=== PATIENT | male | born 1990 | race Caucasian/White ===

== ENCOUNTER 2022-03-13 13:58 | Emergency (ER) | payer BC ==
[~2022-03-13] VITALS: Ht 165.1 cm; Wt 83.9 kg
[2022-03-13 15:35] LABS: BASO # 0.1 10*3/uL (0.0-0.1); BASO % 0.6 % (0.0-1.0); EOS % 0.4 % (1.0-4.0); HEMATOCRIT 42.4 % (42.0-52.0); LYMPH # 1.9 10*3/uL (1.3-4.4); LYMPH % 18.3 % (27.0-41.0); MEAN CORPUSCULAR HGB 30.1 pg (27.0-31.0); MEAN CORPUSCULAR HGB CONC 35.4 g/dl (33.0-37.0); MEAN PLATELET VOLUME 10.6 fl (9.6-12.3); MONO # 0.6 10*3/uL (0.1-1.0); MONO % 5.4 % (3.0-9.0); NEUT # 7.8 10*3/uL (2.3-7.9); NEUT % 74.3 % (47.0-73.0); PLATELET COUNT AUTOMATED 128 10*3/uL (130-400); RED BLOOD COUNT 4.99 10*6/uL (4.50-5.90); RED CELL DISTRI WIDTH 12.3 % (0-14.5); WHITE BLOOD COUNT 10.5 10*3/uL (4.8-10.8)
[2022-03-13 15:36] LABS: ALKALINE PHOSPHATASE 77 U/L (45-117); BUN 12 mg/dl (7-24); CHLORIDE 108 mmol/L (98-107); CREATININE 0.85 mg/dL (0.70-1.30); SGOT/AST 34 IU/L (3-35); SGPT/ALT 63 U/L (12-78); SODIUM 140 mmol/L (136-145); TOTAL PROTEIN 7.8 gm/dL (6.4-8.2)
== END 2022-03-13 16:26 | disposition home or self-care (01) ==
LOC: ED 13:58
PROVIDERS: Nurse Practitioner Family
DX: M94.0 Chondrocostal junction syndrome [Tietze] (principal)

== ENCOUNTER 2023-09-01 01:55 | Emergency (ER) | payer BC ==
[~2023-09-01] VITALS: Ht 167.6 cm; Wt 85.7 kg
[2023-09-01] MEDS ORDERED: FLUORESCEIN SODIUM 1 MG STRIP OPH ONE (02:35)
[2023-09-01] MEDS ORDERED: Tetracaine Hydrochloride 0.5% 4 ML BOT OPH ONE (02:35)
[2023-09-01] MEDS ORDERED: Dexamethasone/Tobramycin OPHTHALMIC 2.5 ML BOTTLE OPH ONE (03:00)
== END 2023-09-01 03:10 | disposition home or self-care (01) ==
LOC: ED 01:55
DX: S05.01XA Injury of conjunctiva and corneal abrasion without foreign body, right eye, initial encounter (principal); X58.XXXA Exposure to other specified factors, initial encounter; Y93.89 Activity, other specified; Y92.59 Other trade areas as the place of occurrence of the external cause; Y99.8 Other external cause status

== ENCOUNTER 2023-09-13 02:12 | Emergency (ER) | payer BC ==
[~2023-09-13] VITALS: Ht 167.6 cm; Wt 83.9 kg
[2023-09-13] MEDS ORDERED: FLUORESCEIN SODIUM 1 MG STRIP OPH ONE (02:20)
[2023-09-13] MEDS ORDERED: TRAMADOL HCL50 MG PO (02:30)
[2023-09-13] MEDS ORDERED: CETRAXAL1 EACH OT (02:30)
== END 2023-09-13 02:32 | disposition home or self-care (01) ==
LOC: ED 02:12
DX: H16.133 Photokeratitis, bilateral (principal); W89.8XXA Exposure to other man-made visible and ultraviolet light, initial encounter; Y93.89 Activity, other specified; Y92.89 Other specified places as the place of occurrence of the external cause; Y99.0 Civilian activity done for income or pay

== ENCOUNTER 2023-09-25 22:09 | Emergency (ER) | payer BC ==
[~2023-09-25] VITALS: Ht 172.7 cm; Wt 81.6 kg
[~2023-09-25 22:09] MED LIST: CETRAXAL1 EACH OT; TRAMADOL HCL50 MG PO
[2023-09-25] MEDS ORDERED: CEPHALEXIN 500 MG CAP PO ONE (23:55)
[2023-09-25] MEDS ORDERED: CEPHALEXIN500 M1 PO (23:55)
== END 2023-09-26 00:02 | disposition home or self-care (01) ==
LOC: ED 22:09
DX: S61.411A Laceration without foreign body of right hand, initial encounter (principal); Z79.899 Other long term (current) drug therapy; Z79.2 Long term (current) use of antibiotics; W26.8XXA Contact with other sharp object(s), not elsewhere classified, initial encounter; Y93.89 Activity, other specified; Y92.89 Other specified places as the place of occurrence of the external cause; Y99.8 Other external cause status

== ENCOUNTER 2024-08-14 08:21 | Emergency (ER) | payer BC ==
[~2024-08-14] VITALS: Ht 167.6 cm; Wt 89.8 kg
[~2024-08-14 08:21] MED LIST changes: +CEPHALEXIN500 M1 PO
[2024-08-14 09:13] LABS: BASO # 0.1 10*3/uL (0.0-0.1); BASO % 0.9 % (0.0-1.0); EOS # 0.5 10*3/uL (0.0-0.4); EOS % 7.4 % (1.0-4.0); HEMATOCRIT 42.9 % (42.0-52.0); MEAN CELL VOLUME 87.4 fl (80.0-94.0); MEAN CORPUSCULAR HGB 29.9 pg (27.0-31.0); MEAN CORPUSCULAR HGB CONC 34.3 g/dl (33.0-37.0); MEAN PLATELET VOLUME 8.8 fl (9.6-12.3); MONO # 0.8 10*3/uL (0.1-1.0); MONO % 11.6 % (3.0-9.0); NEUT % 59.1 % (47.0-73.0); PLATELET COUNT AUTOMATED 212 10*3/uL (130-400); RED BLOOD COUNT 4.91 10*6/uL (4.50-5.90); RED CELL DISTRI WIDTH 12.1 % (0-14.5); WHITE BLOOD COUNT 6.7 10*3/uL (4.8-10.8)
[2024-08-14 09:35] LABS: BUN 13 mg/dl (9-23); CHLORIDE 104 mmol/L (98-107)
[2024-08-14] MEDS ORDERED: ACID REDUCER10 MG PO (09:49)
== END 2024-08-14 09:50 | disposition home or self-care (01) ==
LOC: ED 08:21
PROVIDERS: Internal Medicine
DX: K21.9 Gastro-esophageal reflux disease without esophagitis (principal); Z20.822 Contact with and (suspected) exposure to COVID-19